=== PATIENT | female | born 1950 | race Two or more races ===

== ENCOUNTER 2016-12-18 11:52 | Outpatient (CLI) ==
[2016-12-18 13:02] LABS: FLU INTERNAL QC INTERNAL QC VALID; RAPID FLU A NEGATIVE (NEGATIVE); RAPID FLU B NEGATIVE (NEGATIVE)
== END 2016-12-18 11:53 | disposition home or self-care (01) ==
LOC: LAB 11:52
PROVIDERS: ATTEND Nurse Practitioner Family
DX: J02.9 Acute pharyngitis, unspecified (principal); R05 Cough; R50.9 Fever, unspecified
CPT/HCPCS: 87651; 87804; 87880

== ENCOUNTER 2016-12-21 11:00 | Outpatient (CLI) ==
--- NOTE | 2016-12-21 12:09 | CT ---
EXAM: CT chest without contrast. HISTORY: Acute bronchitis. COMPARISON: None available. TECHNIQUE: Multiple axial images of the chest were obtained without intravenous contrast. Images w ere reformatted in the sagittal and coronal planes. FINDINGS: Evaluation for lymphadenopathy is limited due to lack of intravenous contrast. The heart size is normal. There is no pericardial effusion. Atherosclerotic calcifications are present. The left left lower lobe subpleural nodule measures 0.5 cm on axial image 47. Lungs otherwise clear without pleural effusion or pneumothorax. Degenerative changes present in the spine. Old right-sided rib fractures are present. Old mild com pression deformity of T11 noted. Limited images of the upper abdomen demonstrate an exophytic low-d ensity right renal lesion measuring up to 3.8 cm. Small hiatal hernia noted. IMPRESSION: 1. No acute abnormality of the chest. 2. Left lower lobe micronodule. Follow-up chest CT in 6-12 months recommended for reassessment. 3. Small hiatal hernia. 4. Probable right renal cyst. Follow-up ultrasound recommended.
== END 2016-12-21 11:01 | disposition home or self-care (01) ==
LOC: RAD 11:00
PROVIDERS: ATTEND General Practice
DX: J20.9 Acute bronchitis, unspecified (principal); R09.89 Other specified symptoms and signs involving the circulatory and respiratory systems

== ENCOUNTER 2017-07-12 10:51 | Outpatient (CLI) ==
--- NOTE | 2017-07-12 11:51 | CT ---
EXAM: CT chest without contrast. HISTORY: Solitary pulmonary nodule follow-up. COMPARISON: 12/21/2016. TECHNIQUE: Multiple axial images of the chest were obtained without intravenous contrast. Images we re reformatted in the sagittal and coronal planes. FINDINGS: Evaluation for lymphadenopathy is limited by lack of intravenous contrast. Heart size is normal. Atherosclerotic calcifications present. No pericardial effusion identified. Stable 0.5 cm subpleural left lower lobe nodule on axial image 42 noted. No new nodules are seen. N o consolidation, pleural effusion or pneumothorax identified. Old mild T11 compression deformity again noted. Probable right renal cyst again seen. There is a sm all hiatal hernia. Since the prior study, there has been no significant interval change. IMPRESSION: Stable left lower lobe nodule. Consider follow-up exam in November 2017 to confirm 12-month stability.
== END 2017-07-12 10:52 | disposition home or self-care (01) ==
LOC: RAD 10:51
PROVIDERS: ATTEND General Practice
DX: R91.1 Solitary pulmonary nodule (principal)

== ENCOUNTER 2017-11-07 12:41 | Emergency (ER) | payer OTHER ==
[2017-11-07 12:49] VITALS: TEMP 98.6; BMI 28.3
[2017-11-07] MEDS ORDERED: MORPHINE 2 MG/ML SYRINGE IM STA ×2 (12:53→14:23)
[2017-11-07] MEDS ORDERED: ZOFRAN 4 MG/2 ML IM STA (12:53)
--- NOTE | 2017-11-07 13:41 | CT ---
EXAM: CT thoracic spine without contrast TECHNIQUE: Helical CT of the thoracic spine was performed without contrast with coronal and sagittal reconstructions COMPARISON: CT chest from today and CT chest from 07/12/[address] lumbar spine from today HISTORY: Trauma FINDINGS: There is no acute fracture or dislocation or subluxation. There is some minimal vertebral body height loss involving the T11 vertebral body however this is unchanged compared to the CT perfor med in June 2017. Alignment is anatomic. There is no acute compression fracture. There is no rachael ny effacement of the canal. The lamina and facets are intact. There is no transverse or spinous pro cess fracture. There are no rib fractures seen. There is no pneumothorax in the visualized lung fie lds. Visualized soft tissues show no acute abnormality. There is some mild degenerative change noted in the thoracic spine which is fairly nonfocal. Soft tissue findings per today's CT chest report. IMPRESSION: 1. No acute fracture or compression or subluxation of the thoracic spine. 2. Minimal chronic vertebral body height loss involving T11.
--- NOTE | 2017-11-07 13:49 | ED.PDOC ---
General ED Provider: Dr. ARNIE OLMEDO Chief Complaint: Back Pain Stated Complaint: BACK PAIN THORACIC LUMBAR Time Seen by Physician: 13:00 (FALL FROM STANDING POSTION NEGATIVE HEAD INJURY) Mode of Arrival: Walk-In Information Source: Patient, Family Exam Limitations: No limitations Primary Care Provider: LATRICIA ESPINOZA Referred to ED by: Other (SOME PAIN POST CHEST WALL) Nursing and Triage Documentation Reviewed and Agree: Yes Reviewed sepsis parameters & appropriate labs ordered?: Yes (NO NECK PAIN) System Inflammatory Response Syndrome: Not Applicable Sepsis Protocol: For patient's 13 years and over: Temp is 96.8 and below OR 101 and greater Pulse >90 BPM Resp >20/minute Acutely Altered Mental Status Are patient's symptoms suggestive of a new infection, such as: -Pneumonia -Skin, Soft Tissue -Endocarditis -UTI -Bone, Joint Infection -Implantable Device -Acute Abdominal Infection -Wound Infection -Meningitis -Blood Stream Catheter Infection -Unknown System Inflammatory Response Syndrome: Not Applicable Trauma/Injury Complaint Exam - Trauma Complaint/Exam Location of Pain or Injury: Reports: Chest, Back Mechanism of Injury: Reports: Fall (STANDING POSTION) Onset/Duration: 1 HR PIOR TO ARRIVAL TODAY Symptoms Are: Still present Timing of Treatment: Immediate Initial Severity: Moderate Current Severity: Mild Character: Reports: Aching Aggravating: Reports: Movement Alleviating: Reports: Rest Associated Signs and Symptoms: Denies: LOC, Confusion, Memory loss, Lethargy, Vomiting, Bleeding, Bruising, Swelling, Extremity disuse, Painful respiration, Hoarseness, Dysphagia, Hemoptysis, Significant blood loss Nexus Low Risk Criteria: No post-midline CS tender, No evidence of intoxicat., No Altered LOC, No focal neuro deficit, No distracting injuries Glascow Coma Scale (see protocol): 15 Trauma Findings: Absent: [place] eyes, Dental malocclusion, Neck tenderness, Neck spasm, SubQ Air, Crepitus, Airway obstructed, Labored respirations, Decreased breath sounds, Muffled heart sounds, Weak pulses, Absent pulses, Abdominal distention Skin Findings: Present: Normal findings Review of Systems - Review Of Systems Constitutional: Reports: No symptoms Eyes: Reports: No symptoms Ears, Nose, Mouth, Throat: Reports: No symptoms Respiratory: Reports: No symptoms Cardiac: Reports: No symptoms GI: Reports: No symptoms : Reports: No symptoms Musculoskeletal: Reports: Back pain Skin: Reports: No symptoms Neurological: Reports: No symptoms Endocrine: Reports: No symptoms Hematologic/Lymphatic: Reports: No symptoms All Other Systems: Reviewed and Negative Past Medical History - Past Medical History Previously Healthy: Yes Endocrine: Reports: None Cardiovascular: Reports: None Respiratory: Reports: None Hematological: Reports: None Gastrointestinal: Reports: None Genitourinary: Reports: None Neuro/Psych: Reports: None Musculoskeletal: Reports: None Cancer: Reports: None Last Menstrual Period: hysterectomy - Surgical History General Surgical History: Reports: None - Family History Family History: Reports: None - Social History Smoking Status: Never smoker Hx Substance Use: No Alcohol Screening: None - Immunizations Tetanus Shot up to Date: (unsure) Physical Exam - Physical Exam Appearance: Well-appearing, No pain distress, Well-nourished Eyes: SEBASTIÁN, EOMI, Conjunctiva clear ENT: Ears normal, Nose normal, Oropharynx normal Respiratory: Airway patent, Breath sounds clear, Breath sounds equal, Respirations nonlabored Cardiovascular: RRR, Pulses normal, No rub, No murmur GI/: Soft, Nontender, No masses, Bowel sounds normal, No Organomegaly Musculoskeletal: Normal strength, ROM intact, No edema, No calf tenderness Skin: Warm, Dry, Normal color Neurological: Sensation intact, Motor intact, Reflexes intact, Cranial nerves intact, Alert, Oriented Psychiatric: Affect appropriate, Mood appropriate Interpretation - Radiology Interpretation Radiology Interpretation By: Radiologist Radiology Results: No acute changes Critical Care Note - Critical Care Note Total Time (mins): 0 Course - Course Orders, Labs, Meds: Orders Category Date Time Status Morphine Sulfate [Morphine 2 mg/ml Syringe] MEDS 11/07/17 12:53 Discontinued 4 mg IM ONCE STA Ondansetron HCl/Pf [Zofran 4 mg/2 ml] MEDS 11/07/17 12:53 Discontinued 4 mg IM ONCE STA CT CHEST W/O CONTRAST Stat RADS 11/07/17 12:[address] LUMBAR SPINE W/O CONTRAST Stat RADS 11/07/17 12:[address] THORACIC SPINE W/O CONTRAST Stat RADS 11/07/17 12:52 Completed Medications Discontinued Medications Generic Name Dose Route Start Last Admin Trade Name Freq PRN Reason Stop Dose Admin Morphine Sulfate 4 mg 11/07/17 12:53 11/07/17 13:27 Morphine 2 Mg/Ml Syringe IM 11/07/17 12:54 2 mg ONCE STA Administration Ondansetron HCl 4 mg 11/07/17 12:53 11/07/17 13:25 Zofran 4 Mg/2 Ml IM 11/07/17 12:54 4 mg ONCE STA Administration Vital Signs: Temp Pulse Resp BP Pulse Ox 11/07/17 12:41 98.6 F 100 H 18 199/127 H 96 Departure - Departure Time of Disposition: 14:45 Disposition: HOME SELF-CARE Discharge Problem: Backache Low back pain Qualifiers: Chronicity: acute Sciatica presence: without sciatica Instructions: Low Back Strain (ED), Flank Pain (ED), Back Pain (ED) Condition: Good Pt referred to PMD for follow-up: Yes IPMP verified?: Yes Additional Instructions: Please call your Family Physician as soon as possible to schedule a follow-up appointment. Allergies/Adverse Reactions: Allergies ROBEL Inhibitors Allergy (Intermediate, Verified 11/07/17 12:48) Cough codeine Allergy (Unknown, Verified 11/07/17 12:48) Nausea, headache Disposition Discussed With: Patient
--- NOTE | 2017-11-07 14:02 | CT ---
EXAM: CT chest without contrast TECHNIQUE: Helical axial CT of the chest was performed without contrast with coronal and sagittal rec onstructions. COMPARISON: CT of the thoracic spine from today and CT chest from 07/12/2017 HISTORY: Trauma FINDINGS: . Lung parenchyma: There is no mass or nodule or large effusion or infiltrate. Mediastinum: No pathologic hilar or mediastinal adenopathy. There are coronary calcifications. There is no pericardial effusion. There is some calcific atherosclerosis of the aorta. There is no aortic a neurysm. Upper Abdomen: No focal or acute abnormality. There is a left renal cyst. There is a hiatal hernia. There is no acute injury to the liver or spleen. There is a small calcification next to the gallblad kath probably a calcified mesenteric lymph node. Osseous structures: Nothing acute. No rib fractures identified. There is some minimal chronic vertebr al body height loss involving T11. Surrounding soft tissues including the thyroid gland are normal. No supraclavicular or axillary adeno sherie. IMPRESSION: 1. No acute abnormality in the chest. Specifically there is no evidence for pneumothorax or lung co ntusion or rib fracture or acute thoracic compression fracture. 2. Minimal vertebral body height loss which is chronic involving T11. 3. Hiatal hernia and atherosclerosis and coronary calcifications and right kidney cyst
--- NOTE | 2017-11-07 14:36 | CT ---
EXAM: CT of the lumbar spine without contrast. TECHNIQUE: Helical CT of the lumbar spine was performed without contrast with coronal and sagittal r econstructions. COMPARISON: Thoracic spine CT from same day HISTORY: Trauma FINDINGS: There is no acute compression fracture. There is a minimal degenerative grade 1 anterolis thesis of L4 upon L5. There are no pars defects. There is no bony effacement of the canal. There i s no evidence for laminar or transverse process or spinous process fracture. The pedicles are intact . The facets are anatomically aligned. Soft tissues demonstrate no acute abnormality. There is no acute abnormality seen in the visualized portion of the bony pelvis. There is fairly advanced facet a rthropathy in the lower lumbar spine. There are five lumbar-type vertebral bodies. There is a right r enal cyst. There is a hiatal hernia and calcific atherosclerosis. IMPRESSION: 1. No acute abnormality in the lumbar spine. 2. Advanced lower lumbar facet arthropathy and soft tissue findings as above.
[2017-11-07 15:03] VITALS: BP 162/106
== END 2017-11-07 15:09 | disposition home or self-care (01) ==
LOC: ED 12:41
DX: M54.6 Pain in thoracic spine (principal); M54.5 Low back pain; W19.XXXA Unspecified fall, initial encounter
CPT/HCPCS: 96372; 99283

== ENCOUNTER 2017-11-08 12:17 | Outpatient (CLI) | payer OTHER ==
[2017-11-07 12:49] VITALS: BMI 28.3
== END 2017-11-08 12:18 | disposition home or self-care (01) ==
LOC: LAB 12:17
PROVIDERS: ATTEND General Practice
DX: M54.5 Low back pain (principal)
CPT/HCPCS: 81001

== ENCOUNTER 2017-11-10 11:08 | Outpatient (CLI) | payer OTHER | END 2017-11-10 11:09 | disposition home or self-care (01) | LOC: LAB 11:08 | PROVIDERS: ATTEND General Practice | DX: R31.9 Hematuria, unspecified (principal) | CPT/HCPCS: 81001 ==